=== PATIENT | female | born 1950 | race Caucasian/White ===

== ENCOUNTER 2016-12-15 12:50 | Outpatient (CLI) | payer MEDICARE ==
--- NOTE | 2016-12-15 14:14 | ULT ---
LEFT BREAST ULTRASOUND AND LEFT DIAGNOSTIC MAMMOGRAM: Date: 12/15/16 HISTORY: Focal asymmetry in the left breast COMPARISON: 06/02/16, 05/27/16, and 05/21/15. FINDINGS: ML, MLO, and CC views of the left breast, as well as spot compression views of the left breast in th e MLO and CC projections were performed. The focal asymmetry is again seen in the lower inner aspect of the left breast. This appears well circumscribed. Scattered fibroglandular breast tissue is pres ent. There are no suspicious calcifications or areas of architectural distortion. Interpretation of this mammogram was performed with the assistance of computer-aided detection. Targeted ultrasound of the left breast again shows a lobulated-appearing lesion at the 9:30 position approximately 6.0 cm from the nipple. This has a hyperechoic center and this could represent an int ramammary lymph node. No shadowing is seen posterior to this lesion. IMPRESSION: BIRADS 3: Probably Benign Finding - Short-Interval Follow-Up Suggested A 6 month follow-up mammogram and ultrasound are recommended to ensure continued stability. At that time, the patient should also have a mammogram of the opposite side as she will be due for an annual mammogram of the opposite side. The facility will notify the patient of the need for additional imaging services. POS: GEOVANNY
== END 2016-12-15 12:51 | disposition home or self-care (01) ==
LOC: MAMMO 12:50
PROVIDERS: ATTEND Family Medicine
DX: N63.20 Unspecified lump in the left breast, unspecified quadrant (principal)
CPT/HCPCS: 76642; G0206

== ENCOUNTER 2017-02-08 12:51 | Outpatient (CLI) | payer MEDICARE ==
--- NOTE | 2017-02-08 14:27 | ULT ---
VENOUS DOPPLER ULTRASOUND OF LEFT LOWER EXTREMITY: HISTORY: Edema of the left lower extremity. TECHNIQUE: Carpio scale ultrasound with color flow and spectral Doppler imaging of the deep venous system of the l eft lower extremity was performed. FINDINGS: There is good flow, compression, and augmentation noted in the left common femoral, femoral, deep fem oral, popliteal, posterior tibial, and greater saphenous veins. IMPRESSION: No evidence of deep vein thrombosis in the left lower extremity. POS: GEOVANNY
== END 2017-02-08 12:52 | disposition home or self-care (01) ==
LOC: ULT 12:51
PROVIDERS: ATTEND Family Medicine
DX: R60.0 Localized edema (principal)

== ENCOUNTER 2017-07-03 09:47 | Outpatient (CLI) | payer MEDICARE | END 2017-07-03 09:48 | disposition home or self-care (01) | LOC: BICMAMMO 09:47 | PROVIDERS: ATTEND Family Medicine | DX: N63.20 Unspecified lump in the left breast, unspecified quadrant (principal) | CPT/HCPCS: 76642; 77066; G0279 ==

== ENCOUNTER 2018-03-08 19:05 | Emergency (ER) | payer MEDICARE | END 2018-03-08 20:04 | disposition home or self-care (01) | LOC: ERS 19:05 | DX: I80.9 Phlebitis and thrombophlebitis of unspecified site (principal); L03.113 Cellulitis of right upper limb; I10 Essential (primary) hypertension; F41.9 Anxiety disorder, unspecified | CPT/HCPCS: 99283 ==

== ENCOUNTER 2018-09-28 08:47 | Outpatient (CLI) | payer MEDICARE ==
--- NOTE | 2018-09-28 10:10 | MMO ---
Bilateral MAMMO Bilat Screen [facility]DI+K[facility]I. CLINICAL HISTORY: Patient is 68 years old and is seen for screening. The patient has no family history of breast cancer. The patient has no personal history of cancer. VIEWS: The views performed were: bilateral craniocaudal with tomosynthesis and bilateral mediolateral oblique with tomosynthesis. FILMS COMPARED: The present examination has been compared to prior imaging studies performed at [facility] on 07/03/2017, and at [facility] on 05/27/2016 and 12/15/2016. MAMMOGRAM FINDINGS: There are scattered fibroglandular densities. There are benign appearing calcifications seen in both breasts. There are no suspicious masses, suspicious calcifications, or new areas of architectural distortion. IMPRESSION: THERE IS NO MAMMOGRAPHIC EVIDENCE OF MALIGNANCY. A ROUTINE FOLLOW-UP MAMMOGRAM IN 1 YEAR IS RECOMMENDED. THE RESULTS OF THIS EXAM WERE SENT TO THE PATIENT. ACR BI-RADS Category 2 - Benign finding MAMMOGRAPHY NOTE: 1. A negative mammogram report should not delay a biopsy if a dominant of clinically suspicious mass is present. 2. Approximately 10% to 15% of breast cancers are not detected by mammography. 3. Adenosis and dense breasts may obscure an underlying neoplasm. Reported by: RUFINA HELLER MD Electonically Signed: [id number]
== END 2018-09-28 08:48 | disposition home or self-care (01) ==
LOC: BICMAMMO 08:47
PROVIDERS: ATTEND Family Medicine
DX: Z12.31 Encounter for screening mammogram for malignant neoplasm of breast (principal)
CPT/HCPCS: 77063; 77067

== ENCOUNTER 2018-11-26 14:22 | Outpatient (CLI) | payer MEDICARE ==
[~2018-11-26 14:22] MED LIST: Gadobenate Dimeglumine 529 MG/1 ML (20ML VIAL) ONE
--- NOTE | 2018-11-26 15:49 | MRI ---
EXAM: MRI of the brain without and with contrast HISTORY: Gait instability COMPARISON: None TECHNIQUE: Multiplanar multisequence MR images were obtained of the brain without and with IV contras t. FINDINGS: There is a well-circumscribed homogeneously enhancing mass along the left anterior falx measuring 2.1 cm in greatest dimension. No restricted diffusion. No hydronephrosis. No extra-axial fluid collection or intracranial hemorrhage. The expected flow voids are present. Corpus callosum, pituitary, and craniocervical junction are within normal limits. The calvarium and overlying soft tissues are unremarkable. Mucosal thickening is seen in the maxillary sinuses. The other paranasal sinuses and mastoid air cell s are well aerated. IMPRESSION: Left parafalcine meningioma
== END 2018-11-26 14:23 | disposition home or self-care (01) ==
LOC: BICMRI 14:22
PROVIDERS: ATTEND Family Medicine
DX: R26.81 Unsteadiness on feet (principal); D32.0 Benign neoplasm of cerebral meninges
CPT/HCPCS: 70553; A9577

== ENCOUNTER 2019-01-01 08:22 | Outpatient (CLI) | payer MEDICARE ==
--- NOTE | 2019-01-01 09:45 | CT ---
CT Abdomen Pelvis W WO con History: Urinary tract infection. Hematuria. Comparison: None. Findings: On the noncontrast portion of the exam there is mild atelectasis in the lung bases. No scott cardial effusion. Numerous calcified splenic granulomas. Nonobstructive 3 x 3 mm calculus right inferior renal collecting system. No hydroureteronephrosis. Numerous bilateral renal parapelvic cysts. On the delayed phase of contrast there are no filling defe cts within the renal calyces, ureters, pelvis, nor the urinary bladder although urinary bladder evaluation is somewhat limited due to scatter artifact from bilateral hip arthroplasties. There is abnormal enlargement of the endometrium measuring 2 cm with concern for endometrial mass. Adrenal glands unremarkable. Pancreas is unremarkable. Incidental note is made of a phrygian cap of t he gallbladder. The portal vein is patent. Aortic contour is nonaneurysmal. No retroperitoneal adenopathy. No pelvic adenopathy is appreciated. No dilated loops of large or small bowel. Throughout all phases of the exam there is abnormal luminal narrowing, circumferential, of the ascending colon for length of 1 cm. Bones are moderately demineralized. Chronic appearing Schmorl's nodes of L3 and L4 as well as inferio r endplate of L2. High-grade facet arthrosis bilaterally as well as narrowing of the interspinous spaces. Moderate bilateral posterior paraspinal atrophy as well as atrophy of the bilateral gluteus sandrine a nd minimus muscles. Impression: 1. Nonobstructive 3 x 3 mm calculus inferior right renal collecting system. 2. No abnormal renal enhancing mass. 3. Large bilateral renal parapelvic cysts. 4. No filling defects within the renal calyces, pelvis, ureters, nor the urinary bladder. 5. Abnormally thickened endometrium measuring 2 cm concerning for mass. Gynecologic consultation advi sed as well as a pelvic ultrasound transvaginal approach with Doppler. 6. Throughout all phases the exam is a 1 cm circumferential narrowing of the ascending colon for whic h colonoscopy is recommended.
== END 2019-01-01 08:23 | disposition home or self-care (01) ==
LOC: BICCT 08:22
PROVIDERS: ATTEND Urology
DX: N39.0 Urinary tract infection, site not specified (principal); R31.29 Other microscopic hematuria; N28.1 Cyst of kidney, acquired; N20.0 Calculus of kidney
CPT/HCPCS: 74178; 82565

== ENCOUNTER 2019-03-27 07:50 | Outpatient (CLI) | payer MEDICARE ==
[2019-03-27 12:24] LABS: Hemoglobin 12.9 g/dL (12.0-16.0); Mean Corpuscular HGB CONC 33.2 g/dL (32.0-36.0); Mean Corpuscular Volume 87.4 fL (78.0-98.0); Mean Platelet Volume 6.9 fL (7.4-10.4); Platelet Count 215 thou/uL (130-400); RBC Distribution Width 11.8 % (11.5-14.5); Red Blood Cell (RBC) Count 4.47 mill/uL (4.20-5.40)
--- NOTE | 2019-04-01 18:44 | EKG ---
Test Reason : Blood Pressure : / mmHG Vent. Rate : 068 BPM Atrial Rate : 068 BPM P-R Int : 144 ms QRS Dur : 086 ms QT Int : 458 ms P-R-T Axes : 059 -60 050 degrees QTc Int : 487 ms Poor data quality, interpretation may be adversely affected Normal sinus rhythm Low voltage QRS Left anterior fascicular block Poor anterior R wave progression Abnormal ECG When compared with ECG of 25-AUG-2015 06:47, Left anterior fascicular block is now Present Septal infarct is now Present Nonspecific T wave abnormality, worse in Inferior leads Confirmed by KODY BAILON, DR. Turner (4) on 04/01/2019 6:43:47 PM Referred By: SHAN Confirmed By:DR. Yue GATES MD
== END 2019-03-27 07:51 | disposition home or self-care (01) ==
LOC: LABBT 07:50
PROVIDERS: ATTEND Obstetrics & Gynecology
DX: Z01.818 Encounter for other preprocedural examination (principal); N84.0 Polyp of corpus uteri
CPT/HCPCS: 85027; 86850; 86900; 86901; 93005; 93010

== ENCOUNTER → 2019-03-28 | Day surgery (SDC) | payer MEDICARE ==
[2019-03-27 10:51] VITALS: BMI 29.2
[~2019-03-28] MED LIST changes: +Fentanyl 100 MCG/2 ML VIAL ONE; -Gadobenate Dimeglumine 529 MG/1 ML (20ML VIAL) ONE; +Glycopyrrolate 0.2 MG/ML 5 ML SYRINGE ONE; +Lidocaine 1% PF 5 ML VIAL ONE; +Midazolam HCl 2 mg/2 ml Vial ONE; +Ondansetron PF 4 MG/2 ML Vial ONE; +PROPOFOL 200 MG/20 ML VIAL ONE; +Rocuronium Bromide 10 MG/ML (10ML VIAL) ONE
--- NOTE | 2019-03-28 07:24 | HP ---
REASON FOR ADMISSION: Thickened endometrium, suspected endometrial polyp. HISTORY OF PRESENT ILLNESS: Ms. Rabago is a 68-year-old 0, who is referred to me in January for endometrial mass that was noted on a CT scan of the pelvis. Ultrasound in my office revealed a thickened endometrium to approximately 20 mm with a vascular mass. Endometrial biopsy was performed, which revealed polyp with fragments that were benign. However, because of the size of the mass and its vascularity, malignancy cannot be ruled out with further sampling. DIRECTOR OF ENTERTAINMENT HISTORY: Noted. G0. No history of STDs. MEDICAL HISTORY: Significant for hypertension, stress incontinence, bipolar disease. SURGICAL HISTORY: Bilateral hip replacement, colonoscopy. ALLERGIES: PREVNAR. MEDICATIONS: 1. Estrace vaginal cream. 2. Lexapro. 3. Macrobid. 4. Propanolol. 5. Solifenacin. 6. Vitamin D3. SOCIAL: Denies tobacco, alcohol, or IV drug use. FAMILY HISTORY: Noncontributory. REVIEW OF SYSTEMS: Noncontributory. PHYSICAL EXAMINATION: GENERAL: A white female 5 foot 2 inches, 156, BMI 28. VITAL SIGNS: Blood pressure 138/88, pulse 64, respirations 18. HEENT: Within normal limits. LUNGS: Clear to auscultation bilaterally. HEART: Regular rhythm. BREASTS: Without masses bilaterally. ABDOMEN: Soft, nontender. No rebound or guarding. GENITOURINARY: Vulva without lesions. Vagina without discharge. Cervix, nulliparous, small with atrophic mucosa. Prior EMB, sounded to 6 cm with adequate tissue obtained. IMAGING: Pap smear was within normal limits. Biopsy was interpreted as inactive endometrium of a benign endometrial polyp. IMPRESSION: Postmenopausal white female with large endometrial vascular mass with EMB suggestive of polyp; however a complete sampling to rule out malignancy or premalignancy has not been performed. PLAN: D and C, hysteroscopy with TruClear resection of polyp. The patient understands risks and benefits of procedure including bleeding, infection, perforation, and failure to completely remove the polyp. We will administer appropriate antibiotic and DVT prophylaxis. Job ID: [id number]
--- NOTE | 2019-03-28 14:14 | OP ---
DATE OF PROCEDURE: 03/28/2019 PREOPERATIVE DIAGNOSIS: Thickened endometrium with endometrial biopsy in the office consistent with uterine polyps. POSTOPERATIVE DIAGNOSIS: Multiple endocavitary polyps, benign in appearance. PROCEDURE PERFORMED: Hysteroscopic resection of uterine polyps. ANESTHESIA: General endotracheal. ANESTHESIOLOGIST: Fransico Christopher MD ESTIMATED BLOOD LOSS: Less than 10 mL. MEDICATIONS: 2 g Ancef pre-incision. DVT PROPHYLAXIS: SCDs. OPERATIVE FINDINGS: 1. Pre and post sound 8 cm. 2. Atrophic cavity with multiple polyps, benign in appearance. 3. Significant removal of polyps with small amount of polyp bases remaining at the end of the procedure. 4. Approximately 3 L fluid use, normal saline, distention medium with 200 mL deficit with no evidence of perforation. DISPOSITION: Recovery room in good condition. DESCRIPTION OF PROCEDURE: After obtaining appropriate informed consent, the patient was taken to the operating room, where general endotracheal anesthesia was achieved without difficulty, prepped and draped in dorsal lithotomy position in Akshat stirrups. Bladder was drained of clear urine. Weighted speculum was placed in vagina. Cervix was identified and grasped with single-toothed tenaculum. It was very atrophic in nature. It sounded to 8 cm. It was severely dilated up to appropriate level for the 5 mm hysteroscope. 5 mm hysteroscope TruClear was introduced into the uterine cavity. Findings as noted in the operative findings were noted. Because of large number and size of the polyps, decision was made to proceed with a larger hysteroscope. With TruClear, the cervix was dilated up further, and the hysteroscope was reintroduced. Ideally, we would have used the soft tissue TruClear Plus resection tool; however, one was not in stock at the hospital. Instead, we used the TruClear Plus dense tissue resection device, which was deployed, and the tissue was resected in the usual manner. Majority of fluid loss and use during the case was due to leakage around the scope at the level of the cervix. No evidence of perforation was noted, and the resection device was kept in view throughout the case. Once essentially complete removal of the intracavity polyps was achieved and these were trapped for pathologic analysis, the hysteroscope was removed. Post sound was 8 cm. Tenaculum was removed. No bleeding noted. The patient was awakened, extubated, and taken to recovery room in good condition. We will follow up pathology and the patient in our office in 2 weeks. Job ID: [id number]
== END ==
LOC: SDC 10:01
PROVIDERS: ATTEND Obstetrics & Gynecology
PROC: 0UB98ZX Excision of Uterus, Via Natural or Artificial Opening Endoscopic, Diagnostic (ICD-10-PCS; principal; 2019-03-28)
DX: N84.0 Polyp of corpus uteri (principal); I10 Essential (primary) hypertension; F31.9 Bipolar disorder, unspecified; Z79.82 Long term (current) use of aspirin; Z79.899 Other long term (current) drug therapy; Z88.7 Allergy status to serum and vaccine
CPT/HCPCS: 86850; 86900; 86901; 88305; J0690; J2001; J2250; J2405; J2704; J3010

== ENCOUNTER 2019-05-20 11:54 | Emergency (ER) | payer MEDICARE ==
--- NOTE | 2019-05-20 12:56 | RAD ---
XR Shoulder Rt 3 View STANDARD HISTORY: Fall, right shoulder pain FINDINGS: Degenerative changes are present. No acute fracture or dislocation is identified.
== END 2019-05-20 13:17 | disposition home or self-care (01) ==
LOC: ERS 11:54
DX: M25.511 Pain in right shoulder (principal); I10 Essential (primary) hypertension; F41.9 Anxiety disorder, unspecified; W19.XXXA Unspecified fall, initial encounter

== ENCOUNTER 2019-09-03 09:12 | Day surgery (SDC) | payer MEDICARE, OTHER ==
[2019-08-29 13:33] VITALS: BMI 26.2
--- NOTE | 2019-08-30 13:08 | HP ---
ANTICIPATED DATE OF ADMISSION: 09/03/2019. REASON FOR ADMISSION: Postmenopausal bleeding and polypoid endometrium worrisome for malignancy. HISTORY OF PRESENT ILLNESS: Ms. Rabago is a 69-year-old, 0, who was first seen by me in January of 2019, for an endometrial mass noted on CT scan of the pelvis with a thickened endometrium to 20 mm and a vascular polypoid-appearing mass. Endometrial biopsy at that time revealed polyp fragments that were benign, but because of the vascularity and the size of the mass, malignancy cannot be ruled out. The patient underwent a D and C back in March of 2019, which revealed benign endocervical polyps. However, in the postoperative period, she has had a recurrence of her thickening of an endometrium with a very polypoid, almost grape-like appearance. Because of this recurrence and persistence, decision is made to proceed with definitive surgical management. BOAT FUELER HISTORY: As noted. No history of STDs or dysplasia. PAST MEDICAL HISTORY: Significant for hypertension, mild stress incontinence, and bipolar disease. PAST SURGICAL HISTORY: Bilateral hip replacement, colonoscopy, D and C. ALLERGIES: PREVNAR. MEDICATIONS: 1. Lexapro. 2. Macrobid. 3. Propranolol. 4. Solifenacin. 5. Vitamin D3. 6. Aygestin 5 mg p.o. daily. SOCIAL HISTORY: Denies tobacco, alcohol, or IV drug abuse. FAMILY HISTORY: Noncontributory. REVIEW OF SYSTEMS: Noncontributory. PHYSICAL EXAMINATION: GENERAL: White female. VITAL SIGNS: 5 feet 2 inches, BMI 28, blood pressure 136/82, pulse 85, respirations 18, temperature 98.6. HEENT: Within normal limits. LUNGS: Clear to auscultation bilaterally. HEART: Regular rhythm. BREASTS: No masses bilaterally. ABDOMEN: Soft and nontender. No rebound or guarding. PELVIC: Vulva without lesions. Vagina without discharge. Cervix; nulliparous, small, very atrophic vagina. EXTREMITIES: Without clubbing, cyanosis, or edema. Bimanual exam reveals no enlargement. IMPRESSION: Postmenopausal white female, no previous vaginal deliveries, with a polypoid endometrial vascular mass recurrence post dilation and curettage. Even though previous specimens were negative, it is somewhat worrisome in appearance for malignancy. PLAN: Discussed with the patient options. We will proceed with total laparoscopic hysterectomy and bilateral salpingo-oophorectomy. We will proceed with GelPOINT retrieval not because of the size of the mass, but because of the significant atrophy of her vagina as well as the risk of malignant spread if malignancy is found. Anticipate 23-hour observational status versus 1 day inpatient per the patient. The patient will receive appropriate antibiotic and DVT prophylaxis. COVID testing will be performed today. Job ID: [id number]
[2019-08-30 14:11] LABS: Hemoglobin 11.8 g/dL (12.0-16.0); Mean Corpuscular HGB CONC 33.1 g/dL (32.0-36.0); Mean Corpuscular Volume 87.5 fL (78.0-98.0); Mean Platelet Volume 6.9 fL (7.4-10.4); Platelet Count 213 thou/uL (130-400); RBC Distribution Width 12.8 % (11.5-14.5); Red Blood Cell (RBC) Count 4.09 mill/uL (4.20-5.40); White Blood Cell (WBC) Count 4.4 thou/uL (4.8-10.8)
[2019-08-31 13:11] LABS: SARS-CoV-2 MS2 Positive; SARS-CoV-2 N Gene Negative; SARS-CoV-2 S Gene Negative; SARS-CoV-2 orf1ab Negative
[2019-09-03] MEDS ORDERED: Famotidine/PF 20 mg/2ml Vial ONE (09:59)
[2019-09-03] MEDS ORDERED: Gabapentin 300 MG CAP ONE (09:59)
[2019-09-03] MEDS ORDERED: CeleCOXIB 100 MG CAP ONE (09:59)
[2019-09-03] MEDS ORDERED: Bupivacaine PF 0.5% 30 ML VIAL ONE (10:24)
[2019-09-03] MEDS ORDERED: Lidocaine 1% w/Epinephrine 1:100K 20 ML VIAL ONE (10:24)
[2019-09-03] MEDS ORDERED: Fentanyl 100 MCG/2 ML VIAL ONE ×2 (10:29→12:55)
[2019-09-03] MEDS ORDERED: Morphine 2 MG/ML SYRINGE SLOW IVP PRN (12:30)
[2019-09-03] MEDS ORDERED: Ondansetron PF 4 MG/2 ML Vial IVP PRN (12:30)
[2019-09-03] MEDS ORDERED: HYDROcodone/Acetaminophen 5/325 mg Tablet PO PRN ×2 (12:30)
[2019-09-03] MEDS ORDERED: Morphine 4 MG/ML VIAL SLOW IVP PRN (12:30)
[2019-09-03] MEDS ORDERED: diphenhydrAMINE 25 MG CAP PO PRN (12:30)
[2019-09-03] MEDS ORDERED: Promethazine HCl 25 MG/ML VIAL IM PRN (12:30)
[2019-09-03] MEDS ORDERED: Simethicone Chewable 80 MG TAB PO PRN (12:30)
--- NOTE | 2019-09-03 13:47 | OP ---
DATE OF PROCEDURE: 09/03/2019 PREOPERATIVE DIAGNOSIS: Persistent postmenopausal bleeding with vascular cavitary mass. POSTOPERATIVE DIAGNOSIS: Persistent postmenopausal bleeding with vascular cavitary mass. PROCEDURES PERFORMED: Total laparoscopic hysterectomy, bilateral salpingo-oophorectomy. MANAGER LVN: Katheryn Haynes PA-C ANESTHESIA: General endotracheal. ESTIMATED BLOOD LOSS: 75 mL. MEDICATIONS: 2 g Ancef preincision, DVT prophylaxis, SCDs. OPERATIVE FINDINGS: 1. Small normal-appearing uterus. 2. Normal-appearing tubes and ovaries bilaterally. 3. Hemostasis, clear urine. COUNTS: Correct at the end of the procedure. DISPOSITION: Recovery room in good condition. DESCRIPTION OF PROCEDURE: After obtaining proper informed consent, the patient was taken to the operating room, where general endotracheal anesthesia was achieved without difficulty. The patient was prepped and draped in dorsal lithotomy position in Akshat stirrups. Weighted speculum was placed in vagina. Cervix was identified, grasped with single-tooth tenaculum. Very atrophic vagina and cervix were noted. Cervix was hard to sound. With sounding and dilatation, evidence of perforation was noted. The TAWNYA manipulator with a 6.0 obturator and 3 cm vaginal intelligence director was placed without difficulty. Sandoval catheter was placed. Distillery Worker General changed his gloves and turned attention to abdominal portion of procedure. 10 mL of Marcaine injected above the umbilicus in the midline and a 12 mm skin incision was made. Veress needle was placed inside the abdominal cavity. Insufflation was carried out. Confirmation entry to the peritoneal cavity and trocar placement at max pressure of 15. Deborah cannula was placed. Right and left lateral da Radha ports were placed lateral to the epigastric vessels and the business banking sales assistant port was placed in the right upper quadrant. The patient was placed in Trendelenburg and findings as noted in the operative findings were noted. Because of the concern about possible malignancy based on the sonographic appearance, decision was made to place a GelPOINT to enable bag retrieval secondary to the concerns about malignancy as well as the patient's atrophic vagina. The fascial incision at the umbilicus was extended to approximately 2.5 cm and the GelPOINT was placed without difficulty. Retrieval bag was placed inside the abdominal cavity. Inspection revealed that the uterine manipulator had perforated anterior left lateral and because of this location, decision was made to pull it back and replace it under laparoscopic visualization. The patient's legs were rotated slightly. The TAWNYA was removed. Sound used to find the correct true path into the uterine cavity and the TAWNYA replaced without difficulty, inflated and a 3 cm vaginal obturator replaced. Da Radha robot was docked. Monopolar scissors in the right and bipolar fenestrated forceps in the left. Infundibulopelvic ligament on the patient's left was coagulated, transected, taken through the broad and the round down the level internal cervical os. The patient's bladder was noted to be quite patulous and was dissected off the lower uterine segment, cervix, and upper vagina. Backfilling the bladder several times to identify its margins. Identical procedure was carried out on the patient's right. Uterine vessels were skeletonized bilaterally, coagulated, and transected. Once this was done, the vagina was entered anteriorly at 12 o'clock, extended from 12 to 3, 12 to 9, and then from 3 to 6 and, 9 to 6 amputating the specimen. The balloon was down and the TAWNYA and was retrieved into the abdomen. Suction irrigation was carried out. Good hemostasis was achieved along the margin of the vagina. The bladder was again backfilled to identified its margins and it was closed using a running continuous 2-0 Stratafix PDS suture from right to left and back to the right, again backfilling along the way to ensure that the bladder was well out of the vaginal cuff closure. Good hemostasis was noted. Tisseel was placed across the surgical pedicles. Retrieval bag was brought down into the pelvis from the upper abdomen. Stay sutures on the retrieval bag cut, the bag opened, and the uterus and ovary were placed inside the retrieval bag. That was then brought out through the GelPOINT. The da Radha was undocked. After instruments were removed, the abdomen desufflated of carbon dioxide. The specimen was retrieved intact through the GelPOINT at the umbilicus. GelPOINT removed and the fascia at that level was reapproximated using running continuous 0 PDS suture. Good fascial integrity was noted. The skin was reapproximated at all 4 trocars sites using 4-0 Monocryl and Dermabond in subcuticular manner. Vagina was sponge checked and noted to be hemostatic and dry, and the patient was awakened and extubated to recovery room in good condition. Job ID: [id number]
[2019-09-03] MEDS ORDERED: Rocuronium Bromide 10 MG/ML (10ML VIAL) ONE (14:22)
[2019-09-03] MEDS ORDERED: Metoclopramide HCl 10 MG/2 ML VIAL ONE (14:22)
[2019-09-03] MEDS ORDERED: Ondansetron PF 4 MG/2 ML Vial ONE (14:22)
[2019-09-03] MEDS ORDERED: PROPOFOL 200 MG/20 ML VIAL ONE (14:22)
[2019-09-03] MEDS ORDERED: Lidocaine 1% PF 5 ML VIAL ONE (14:22)
[2019-09-03] MEDS ORDERED: Dexamethasone 20 MG/5 ML VIAL ONE (14:22)
[2019-09-03] MEDS ORDERED: Glycopyrrolate 0.2 MG/ML 5 ML SYRINGE ONE (14:22)
[2019-09-03] MEDS: Sodium Chloride 0.9% 1,000 ML IV SCH (15:25)
[2019-09-03] MEDS ORDERED: Sodium Chloride 0.9% 10 ML ONE (15:32)
[2019-09-03] MEDS: Ketorolac Tromethamine 30 MG/ML VIAL IVP SCH (17:51)
[2019-09-03] MEDS ORDERED: Docusate 100 MG CAP PO SCH (21:00)
[2019-09-04] MEDS: Sodium Chloride 0.9% 1,000 ML IV SCH ×2 (00:14→06:46)
[2019-09-04] MEDS: Ketorolac Tromethamine 30 MG/ML VIAL IVP SCH (02:39)
[2019-09-04] MEDS ORDERED: Ibuprofen 800 MG TAB PO SCH (06:00)
[2019-09-04 08:42] VITALS: BP 115/75; TEMP 98.1
[2019-09-04] MEDS ORDERED: Oxybutynin ER 5 MG TAB PO SCH (09:00)
[2019-09-04] MEDS ORDERED: Escitalopram Oxalate 10 mg Tablet PO SCH (09:00)
[2019-09-04 09:53] LABS: Hemoglobin 10.8 g/dL (12.0-16.0); Mean Corpuscular Hemoglobin 29.4 pg (27.0-31.0); Mean Corpuscular Volume 89.2 fL (78.0-98.0); Mean Platelet Volume 6.7 fL (7.4-10.4); Platelet Count 144 thou/uL (130-400); RBC Distribution Width 12.8 % (11.5-14.5); Red Blood Cell (RBC) Count 3.65 mill/uL (4.20-5.40); White Blood Cell (WBC) Count 7.6 thou/uL (4.8-10.8)
--- NOTE | 2019-09-04 12:35 | DIS ---
DATE OF ADMISSION: 09/03/2019 DATE OF DISCHARGE: 09/04/2019 SUMMARY OF HOSPITAL COURSE: The patient was admitted and underwent a TLH on 09/02. She had minimal blood loss. Postop day #1, hematocrit was 35.8% with white count of 4.4, normal platelets. PHYSICAL EXAMINATION: VITAL SIGNS: Temperature 97.3, T-max 98.2, pulse 77, respirations 16, and blood pressure 143/85. HEENT: Within normal limits. LUNGS: Clear to auscultation bilaterally. HEART: Regular rhythm. ABDOMEN: Soft and nontender. Bowel sounds in all 4 quadrants. Incision is intact and dry. Perineum is dry. EXTREMITIES: No clubbing, cyanosis, or edema. Of note, the patient had a urine output of 1100 mL postoperatively and voided 130 mL within 1 hour of vaginal pack and Sandoval catheter removal on the morning of 09/03. IMPRESSION: Doing well, status post total laparoscopic hysterectomy for postmenopausal bleeding, pathology pending. PLAN: Discharge home. [place] and ibuprofen sent out preoperatively. The patient has scheduled followup with [facility]. Will follow up pathology. Job ID: [id number]
--- NOTE | 2019-09-04 18:10 | EKG ---
Test Reason : PREOP Blood Pressure : / mmHG Vent. Rate : 055 BPM Atrial Rate : 055 BPM P-R Int : 128 ms QRS Dur : 098 ms QT Int : 460 ms P-R-T Axes : 084 -13 001 degrees QTc Int : 440 ms Sinus bradycardia with sinus arrhythmia Nonspecific ST and T wave abnormality Abnormal ECG When compared with ECG of 27-MAR-2019 11:19, QRS axis Shifted right Criteria for Septal infarct are no longer Present Nonspecific T wave abnormality, worse in Lateral leads Confirmed by ESTELA KIRBY (2) on 09/04/2019 6:10:33 PM Referred By: FRANCE Confirmed By:ESTELA KIRBY
== END 2019-09-04 10:50 | disposition home or self-care (01) ==
LOC: SDC 09:12 → 3SW 14:41 → SDC 09-04 10:50
PROVIDERS: ATTEND Obstetrics & Gynecology
PROC: 0UT94ZZ Resection of Uterus, Percutaneous Endoscopic Approach (ICD-10-PCS; principal; 2019-09-03)
PROC: 0UT24ZZ Resection of Bilateral Ovaries, Percutaneous Endoscopic Approach (ICD-10-PCS; 2019-09-03)
PROC: 0UT74ZZ Resection of Bilateral Fallopian Tubes, Percutaneous Endoscopic Approach (ICD-10-PCS; 2019-09-03)
DX: D25.9 Leiomyoma of uterus, unspecified (principal); N83.311 Acquired atrophy of right ovary; N83.312 Acquired atrophy of left ovary; I10 Essential (primary) hypertension; F31.9 Bipolar disorder, unspecified; Z79.899 Other long term (current) drug therapy; Z88.7 Allergy status to serum and vaccine
CPT/HCPCS: 58571; 85027 ×2; 86850; 86900; 86901; 88307; 93005; U0003; 36416; 87635; 93010; J0690; J1100; J1885; J2001; J2405; J2704; J2765; J3010; S0020; S0028

== ENCOUNTER 2019-10-01 09:37 | Outpatient (CLI) | payer MEDICARE ==
--- NOTE | 2019-10-01 10:59 | MMO ---
Bilateral MAMMO Bilat Screen DDI+KAMARI. CLINICAL HISTORY: Patient is 69 years old and is seen for screening. The patient has no family history of breast cancer. The patient has no personal history of cancer. VIEWS: The views performed were: bilateral craniocaudal with tomosynthesis and bilateral mediolateral oblique with tomosynthesis. FILMS COMPARED: The present examination has been compared to prior imaging studies performed at [facility] on 07/03/2017 and 09/28/2018, and at [facility] on 05/27/2016 and 12/15/2016. This study has been interpreted with the assistance of computer-aided detection. MAMMOGRAM FINDINGS: There are scattered fibroglandular densities. Benign calcifications are noted bilaterally. There are no suspicious masses, suspicious calcifications, or new areas of architectural distortion. IMPRESSION: THERE IS NO MAMMOGRAPHIC EVIDENCE OF MALIGNANCY. A ROUTINE FOLLOW-UP MAMMOGRAM IN 1 YEAR IS RECOMMENDED. THE RESULTS OF THIS EXAM WERE SENT TO THE PATIENT. ACR BI-RADS Category 2 - Benign finding MAMMOGRAPHY NOTE: 1. A negative mammogram report should not delay a biopsy if a dominant of clinically suspicious mass is present. 2. Approximately 10% to 15% of breast cancers are not detected by mammography. 3. Adenosis and dense breasts may obscure an underlying neoplasm. Reported by: DRISS TRUONG MD Electonically Signed: [id number]
== END 2019-10-01 09:38 | disposition home or self-care (01) ==
LOC: BICMAMMO 09:37
PROVIDERS: ATTEND Family Medicine
DX: Z12.31 Encounter for screening mammogram for malignant neoplasm of breast (principal)
CPT/HCPCS: 77063; 77067

== ENCOUNTER 2020-02-05 09:28 | Outpatient (CLI) | payer MEDICARE ==
--- NOTE | 2020-02-05 11:20 | MRI ---
MRI BRAIN WITH AND WITHOUT CONTRAST: INDICATION: Benign brain tumor. Followup. COMPARISON: Comparison is made to MRI of brain 11/26/2018. FINDINGS: FINDINGS: Mild cortical volume loss is stable. Mild chronic ischemic white matter changes appear stable. No e vidence of restricted diffusion. Post contrast images again show an enhancing mass along the flax superiorly to the left of midline un changed in size and appearance from the prior study. This continues to measure 2.1 cm AP dimension i n the axial plane. Maximal craniocaudal in the sagittal plane is 2.3 cm and is stable. No other abnormal enhancement. Mucous retention cyst in the left maxillary sinus measuring approximately 1.7 cm is stable. The cere bral arteries and dural venous sinuses demonstrate flow voids. IMPRESSION: 1. Falcine meningioma on the left superiorly is stable. 2. Mucous retention cyst in the left maxillary sinus is unchanged. 3. Mild chronic ischemic changes are unchanged in appearance. POS: AGW
[2020-02-05] MEDS ORDERED: Magnevist 469MG/ML 20 ML VIAL ONE (14:38)
== END 2020-02-05 09:29 | disposition home or self-care (01) ==
LOC: TBSIIMAG 09:28
PROVIDERS: ATTEND Neurological Surgery
DX: D32.0 Benign neoplasm of cerebral meninges (principal); J34.1 Cyst and mucocele of nose and nasal sinus; G93.89 Other specified disorders of brain
CPT/HCPCS: 70553; A9579

== ENCOUNTER 2020-04-02 09:16 | Emergency (ER) | payer MEDICARE ==
[2020-04-02] MEDS ORDERED: Bupivacaine 0.5% 10 ML VIAL ONE ×3 (09:29→09:34)
[2020-04-02] MEDS ORDERED: Lorazepam 2 MG/ML VIAL ONE (09:32)
[2020-04-02] MEDS ORDERED: Lorazepam 1 MG TAB ONE (09:35)
--- NOTE | 2020-04-02 10:53 | CT ---
CT BRAIN WITHOUT CONTRAST: HISTORY: Trauma, headache. FINDINGS: No evidence of acute infarct, hemorrhage, midline shift or abnormal extra-axial fluid collections is seen. The ventricular size is appropriate and the basilar cisterns are patent. The bony calvarium is intact. There is a mucous retention cyst versus polyp in the left maxillary sinus. There is mucosa l disease in the right maxillary sinus. There is soft tissue swelling in the right periorbital region. There are postoperative changes in the region of the right mastoid. Left anterior superior parafalcine meningioma is better visualized on the MRI of 02/05/2020 IMPRESSION: No CT evidence of acute intracranial process.
== END 2020-04-02 11:49 | disposition home or self-care (01) ==
LOC: ERS 09:16
DX: S01.111A Laceration without foreign body of right eyelid and periocular area, initial encounter (principal); I10 Essential (primary) hypertension; K21.9 Gastro-esophageal reflux disease without esophagitis; Z79.82 Long term (current) use of aspirin; Z79.899 Other long term (current) drug therapy; W01.0XXA Fall on same level from slipping, tripping and stumbling without subsequent striking against object, initial encounter
CPT/HCPCS: 12013; 70450; J2060; J3490

== ENCOUNTER 2021-10-04 09:58 | Outpatient (CLI) | payer MEDICARE | END 2021-10-04 09:59 | disposition home or self-care (01) | LOC: BICMAMMO 09:58 | PROVIDERS: ATTEND Family Medicine | DX: Z12.31 Encounter for screening mammogram for malignant neoplasm of breast (principal) | CPT/HCPCS: 77063; 77067 ==

== ENCOUNTER 2022-04-26 12:34 | Outpatient (CLI) | payer MEDICARE ==
[~2022-04-26 12:34] MED LIST changes: -Fentanyl 100 MCG/2 ML VIAL ONE; -Glycopyrrolate 0.2 MG/ML 5 ML SYRINGE ONE; -Lidocaine 1% PF 5 ML VIAL ONE; +Magnevist 469MG/ML 20 ML VIAL ONE; -Midazolam HCl 2 mg/2 ml Vial ONE; -Ondansetron PF 4 MG/2 ML Vial ONE; -PROPOFOL 200 MG/20 ML VIAL ONE; -Rocuronium Bromide 10 MG/ML (10ML VIAL) ONE
== END 2022-04-26 12:35 | disposition home or self-care (01) ==
LOC: TBSIIMAG 12:34
PROVIDERS: ATTEND Neurological Surgery
DX: D33.2 Benign neoplasm of brain, unspecified (principal); I67.82 Cerebral ischemia
CPT/HCPCS: 70553

== ENCOUNTER 2022-06-14 08:26 | Outpatient (CLI) | payer MEDICARE | END 2022-06-14 08:27 | disposition home or self-care (01) | LOC: NM 08:26 | PROVIDERS: ATTEND Psychiatry & Neurology Neurology | DX: G20 Parkinson's disease (principal) | CPT/HCPCS: 78803; A9584 ×2 ==

== ENCOUNTER 2022-06-30 08:53 | Outpatient (CLI) | payer MEDICARE ==
[2022-06-30 10:10] LABS: #Eosinphils 0.1 thou/uL (0.0-0.7); #Monocytes 0.3 thou/uL (0.11-0.59); #Neutrophils 2.5 thou/uL (1.40-6.50); %Eosinophils 2.4 % (0.0-10.0); %Lymphocytes 24.3 % (21.0-51.0); %Monocytes 8.8 % (0.0-10.0); %Neutrophils 63.5 % (42.0-75.0); Mean Corpuscular HGB CONC 33.4 g/dL (32.0-36.0); Mean Corpuscular Hemoglobin 30.7 pg (27.0-31.0); Mean Corpuscular Volume 91.9 fl (78.0-98.0); Platelet Count 188 10x3/uL (130-400); RBC Distribution Width 11.9 % (11.5-14.5); Red Blood Cell (RBC) Count 3.26 mill/uL (4.20-5.40); White Blood Cell (WBC) Count 3.9 10x3/uL (4.8-10.8)
[2022-06-30 10:29] LABS: ALT (SGPT) Less than 7 U/L (8-55); AST (SGOT) 15 U/L (5-34); Albumin 3.5 g/dL (3.4-4.8); Alkaline Phosphatase 80 U/L (40-110); Anion Gap 13 mmol/L (10-20); BUN (Urea Nitrogen) 23 mg/dL (9.8-20.1); Bilirubin, Total 0.3 mg/dL (0.2-1.2); Calc. Creatinine Clearance 0 mL/min (70-130); Calcium 9.2 mg/dL (7.8-10.44); Carbon Dioxide 24 mmol/L (23-31); Chloride 103 mmol/L (98-107); Estimated GFR 80; Globulin 2.6 g/dL (2.4-3.5); Glucose 82 mg/dL (83-110); Potassium 4.3 mmol/L (3.5-5.1); Protein, Total 6.1 g/dL (5.8-8.1); Sodium 136 mmol/L (136-145)
== END 2022-06-30 08:54 | disposition home or self-care (01) ==
LOC: CT 08:53
PROVIDERS: ATTEND Internal Medicine Gastroenterology
DX: Z01.818 Encounter for other preprocedural examination (principal); R13.10 Dysphagia, unspecified; D64.9 Anemia, unspecified; K31.89 Other diseases of stomach and duodenum
CPT/HCPCS: 36415; 71260; 74160; 80053; 82565; 85025

== ENCOUNTER 2022-10-24 14:25 | Outpatient (CLI) | payer MEDICARE | END 2022-10-24 14:26 | disposition home or self-care (01) | LOC: BICMAMMO 14:25 | PROVIDERS: ATTEND Family Medicine | DX: Z12.31 Encounter for screening mammogram for malignant neoplasm of breast (principal) | CPT/HCPCS: 77063; 77067 ==

== ENCOUNTER 2023-08-29 15:20 | Outpatient (CLI) | payer MEDICARE | END 2023-08-29 15:21 | disposition home or self-care (01) | LOC: BICRAD 15:20 | PROVIDERS: ATTEND Internal Medicine Rheumatology | DX: M81.0 Age-related osteoporosis without current pathological fracture (principal) | CPT/HCPCS: 72070 ==

== ENCOUNTER 2023-10-26 13:51 | Outpatient (CLI) | payer MEDICARE | END 2023-10-26 13:52 | disposition home or self-care (01) | LOC: BICMAMMO 13:51 | PROVIDERS: ATTEND Family Medicine | DX: Z12.31 Encounter for screening mammogram for malignant neoplasm of breast (principal) | CPT/HCPCS: 77063; 77067 ==

== ENCOUNTER 2023-12-29 13:41 | Outpatient (CLI) | payer MEDICARE | END 2023-12-29 13:42 | disposition home or self-care (01) | LOC: MRI 13:41 | PROVIDERS: ATTEND Psychiatry & Neurology Neurology | DX: G93.89 Other specified disorders of brain (principal); D32.0 Benign neoplasm of cerebral meninges | CPT/HCPCS: 70553; 76376 ==

== ENCOUNTER 2024-12-22 14:09 | Emergency (ER) | payer MEDICARE ==
[2024-12-22 14:50] LABS: #Basophils 0.03 10x3/uL (0.0-0.2); #Eosinophils 0.06 10x3/uL (0.0-0.7); #Monocytes 0.36 10x3/uL (0.11-0.59); #Neutrophils 4.77 10x3/uL (1.40-6.50); %Basophils 0.5 % (0.0-1.0); %Eosinophils 1.0 % (0.0-10.0); %Lymphocytes 11.5 % (21.0-51.0); %Monocytes 6.1 % (0.0-10.0); %Neutrophils 80.6 % (42.0-75.0); Hematocrit 30.2 % (36.0-47.0); Hemoglobin 9.7 g/dL (12.0-16.0); Mean Corpuscular Hemoglobin 28.1 pg (27.0-31.0); Mean Corpuscular Volume 87.5 fL (78.0-98.0); Platelet Count 249 10x3/uL (130-400); Red Blood Cell (RBC) Count 3.45 mill/uL (4.20-5.40); White Blood Cell (WBC) Count 5.92 10x3/uL (4.8-10.8)
[2024-12-22 15:10] LABS: ALT (SGPT) Less than 7 U/L (Less than 34); AST (SGOT) 19 U/L (11-34); Albumin 3.2 g/dL (3.1-4.5); Alkaline Phosphatase 99 U/L (40-110); Anion Gap 15 mmol/L (10-20); BUN (Urea Nitrogen) 30 mg/dL (9.8-20.1); Bilirubin, Total 0.3 mg/dL (0.3-1.2); Calc. Creatinine Clearance 0 mL/min (70-130); Calcium 9.1 mg/dL (7.8-10.44); Carbon Dioxide 25 mmol/L (23-31); Chloride 105 mmol/L (98-107); Globulin 3.4 g/dL (2.4-3.5); Glucose 101 mg/dL (83-110); Magnesium 1.9 mg/dL (1.6-2.6); Potassium 3.7 mmol/L (3.5-5.1); Sodium 141 mmol/L (136-145)
== END 2024-12-22 18:11 | disposition home or self-care (01) ==
LOC: ERS 14:09
DX: R42 Dizziness and giddiness (principal); R29.700 NIHSS score 0; I10 Essential (primary) hypertension
CPT/HCPCS: 36416; 70450; 72125; 80053; 83735; 83880; 84443; 84484; 85025; 93005

== ENCOUNTER 2024-12-23 17:38 | Inpatient (IN) | payer MEDICARE ==
[2024-12-23] MEDS ORDERED: Boostrix 0.5 ML (Tdap) VIAL (>/=7 yrs of age) ONE (18:57)
[2024-12-23] MEDS ORDERED: Ketorolac Tromethamine 30 MG (1 mL) VIAL ONE (18:58)
[2024-12-23] MEDS ORDERED: Ondansetron PF 4 MG/2 ML Vial ONE (21:05)
[2024-12-23 21:25] LABS: #Basophils 0.03 10x3/uL (0.0-0.2); #Eosinophils 0.12 10x3/uL (0.0-0.7); #Monocytes 0.47 10x3/uL (0.11-0.59); #Neutrophils 5.30 10x3/uL (1.40-6.50); %Basophils 0.4 % (0.0-1.0); %Eosinophils 1.8 % (0.0-10.0); %Lymphocytes 12.9 % (21.0-51.0); %Monocytes 6.9 % (0.0-10.0); %Neutrophils 77.4 % (42.0-75.0); Hematocrit 33.1 % (36.0-47.0); Hemoglobin 10.5 g/dL (12.0-16.0); Mean Corpuscular Hemoglobin 27.9 pg (27.0-31.0); Mean Corpuscular Volume 87.8 fL (78.0-98.0); Platelet Count 274 10x3/uL (130-400); Red Blood Cell (RBC) Count 3.77 mill/uL (4.20-5.40); White Blood Cell (WBC) Count 6.84 10x3/uL (4.8-10.8)
[2024-12-23 21:51] LABS: ALT (SGPT) Less than 7 U/L (Less than 34); AST (SGOT) 26 U/L (11-34); Albumin 3.4 g/dL (3.1-4.5); Alkaline Phosphatase 91 U/L (40-110); Anion Gap 17 mmol/L (10-20); BUN (Urea Nitrogen) 26 mg/dL (9.8-20.1); Bilirubin, Total 0.3 mg/dL (0.3-1.2); Calc. Creatinine Clearance 0 mL/min (70-130); Calcium 9.6 mg/dL (7.8-10.44); Carbon Dioxide 26 mmol/L (23-31); Chloride 105 mmol/L (98-107); Globulin 3.6 g/dL (2.4-3.5); Glucose 122 mg/dL (83-110); Lipase 7 U/L (8-78); Magnesium 1.8 mg/dL (1.6-2.6); Potassium 4.1 mmol/L (3.5-5.1); Sodium 144 mmol/L (136-145)
[2024-12-23 21:52] LABS: Acetaminophen Less than 10 mcg/mL (Less than 10); Salicylate Less than 8.0 mg/dL (Less than 8.0)
[2024-12-24] MEDS ORDERED: Ondansetron PF 4 MG/2 ML Vial ONE (00:55)
[2024-12-24] MEDS ORDERED: Dextrose 50% Abboject 50 ML SYRINGE SLOW IVP PRN (01:02)
[2024-12-24] MEDS ORDERED: Glucagon 1 MG/ML KIT IM PRN (01:02)
[2024-12-24 01:13] LABS: Bacteria/HPF 3+ HPF (None Seen); CAUTI Indications for Culture Alt mental st,lethar; Glucose, Urine (Dipstick) Normal (Negative); Leukocyte 75 Leu/uL (Negative); Protein, Urine (Dipstick) Negative (Neg-Trace); RBC/HPF 0-3 HPF (0-3); Specific Gravity, Urine 1.010 (1.002-1.036)
[2024-12-24 01:15] LABS: Urine Culture Reflex No No
[2024-12-24 01:19] LABS: Cocaine Metabolite Screen Negative (Negative); THC/Cannabinoid Screen Negative (Negative); Tricyclic Screen Negative (Negative)
[2024-12-24] MEDS: TETANUS, DIPHTHERIA TOX,ADULT (TDVAX) 0.5 ML VIAL IM ONE (03:08)
[2024-12-24 04:51] LABS: #Basophils 0.03 10x3/uL (0.0-0.2); #Eosinophils 0.17 10x3/uL (0.0-0.7); #Monocytes 0.47 10x3/uL (0.11-0.59); #Neutrophils 3.18 10x3/uL (1.40-6.50); %Basophils 0.6 % (0.0-1.0); %Eosinophils 3.5 % (0.0-10.0); %Lymphocytes 20.5 % (21.0-51.0); %Monocytes 9.6 % (0.0-10.0); %Neutrophils 65.2 % (42.0-75.0); Hematocrit 30.6 % (36.0-47.0); Hemoglobin 9.7 g/dL (12.0-16.0); Mean Corpuscular Hemoglobin 28.1 pg (27.0-31.0); Mean Corpuscular Volume 88.7 fL (78.0-98.0); Platelet Count 211 10x3/uL (130-400); Red Blood Cell (RBC) Count 3.45 mill/uL (4.20-5.40); White Blood Cell (WBC) Count 4.88 10x3/uL (4.8-10.8)
[2024-12-24 04:54] LABS: Anion Gap 13 mmol/L (10-20); BUN (Urea Nitrogen) 22 mg/dL (9.8-20.1); Calc. Creatinine Clearance 54 mL/min (70-130); Calcium 9.4 mg/dL (7.8-10.44); Carbon Dioxide 24 mmol/L (23-31); Chloride 111 mmol/L (98-107); Glucose 93 mg/dL (83-110); Potassium 3.9 mmol/L (3.5-5.1); Sodium 144 mmol/L (136-145)
[2024-12-24] MEDS ORDERED: Acetaminophen 325 MG TAB ONE (05:41)
[2024-12-24] MEDS ORDERED: Famotidine 20 MG TAB ONE (09:35)
[2024-12-24] MEDS ORDERED: hydrALAZINE 20 MG/ML VIAL ONE (09:35)
[2024-12-24] MEDS: hydrALAZINE 20 MG/ML VIAL SLOW IVP PRN (10:16)
[2024-12-24] MEDS: Famotidine 20 MG TAB PO SCH (10:16)
[2024-12-24 17:57] VITALS: BMI 24.7
[2024-12-24] MEDS: cefTRIAXone\\ROCEPHIN 1 GM in Sodium Chloride 0.9% 100 ML IVPB SCH (20:43)
[2024-12-25 06:29] LABS: #Basophils 0.04 10x3/uL (0.0-0.2); #Eosinophils 0.23 10x3/uL (0.0-0.7); #Monocytes 0.46 10x3/uL (0.11-0.59); #Neutrophils 3.24 10x3/uL (1.40-6.50); %Basophils 0.8 % (0.0-1.0); %Eosinophils 4.7 % (0.0-10.0); %Lymphocytes 18.8 % (21.0-51.0); %Monocytes 9.4 % (0.0-10.0); %Neutrophils 66.1 % (42.0-75.0); Hematocrit 28.9 % (36.0-47.0); Hemoglobin 8.9 g/dL (12.0-16.0); Mean Corpuscular Hemoglobin 27.9 pg (27.0-31.0); Mean Corpuscular Volume 90.6 fL (78.0-98.0); Platelet Count 229 10x3/uL (130-400); Red Blood Cell (RBC) Count 3.19 mill/uL (4.20-5.40); White Blood Cell (WBC) Count 4.90 10x3/uL (4.8-10.8)
[2024-12-25 07:09] LABS: Anion Gap 11 mmol/L (10-20); BUN (Urea Nitrogen) 18 mg/dL (9.8-20.1); Calc. Creatinine Clearance 52 mL/min (70-130); Calcium 8.3 mg/dL (7.8-10.44); Carbon Dioxide 25 mmol/L (23-31); Chloride 111 mmol/L (98-107); Glucose 96 mg/dL (83-110); Magnesium 1.4 mg/dL (1.6-2.6); Potassium 3.6 mmol/L (3.5-5.1); Sodium 143 mmol/L (136-145)
[2024-12-25] MEDS: Aspirin 81 mg Enteric Coated Tablet PO SCH (09:36)
[2024-12-25] MEDS: Enoxaparin 40 MG (0.4 mL) SYRINGE SC SCH (12:22)
[2024-12-25] MEDS: Acetaminophen 325 MG TAB PO PRN (15:54)
[2024-12-25] MEDS: Magnesium 2 GM/50 ML(in water) 2 GM in Premix 1 BAG IVPB SCH (15:55)
[2024-12-26] MEDS: FLU (Fluad Triv) 25-26 (65UP)PF 45 MCG/0.5 ML Syringe IM ONE (08:46)
[2024-12-26] MEDS: Calcium Carbonate 600 MG + Vit D TAB PO SCH (08:47)
[2024-12-26] MEDS: Methocarbamol 500 MG TAB PO SCH (08:47)
[2024-12-27 05:53] LABS: #Basophils Less than 0.03 10x3/uL (0.0-0.2); #Eosinophils 0.17 10x3/uL (0.0-0.7); #Monocytes 0.49 10x3/uL (0.11-0.59); #Neutrophils 3.20 10x3/uL (1.40-6.50); %Basophils 0.4 % (0.0-1.0); %Eosinophils 3.6 % (0.0-10.0); %Lymphocytes 18.1 % (21.0-51.0); %Monocytes 10.3 % (0.0-10.0); %Neutrophils 67.2 % (42.0-75.0); Hematocrit 29.7 % (36.0-47.0); Hemoglobin 9.4 g/dL (12.0-16.0); Mean Corpuscular Hemoglobin 28.0 pg (27.0-31.0); Mean Corpuscular Volume 88.4 fL (78.0-98.0); Platelet Count 238 10x3/uL (130-400); Red Blood Cell (RBC) Count 3.36 mill/uL (4.20-5.40); White Blood Cell (WBC) Count 4.76 10x3/uL (4.8-10.8)
[2024-12-27 06:49] LABS: Anion Gap 14 mmol/L (10-20); BUN (Urea Nitrogen) 9 mg/dL (9.8-20.1); Calc. Creatinine Clearance 76 mL/min (70-130); Calcium 8.5 mg/dL (7.8-10.44); Carbon Dioxide 23 mmol/L (23-31); Chloride 109 mmol/L (98-107); Glucose 86 mg/dL (83-110); Magnesium 1.6 mg/dL (1.6-2.6); Potassium 3.7 mmol/L (3.5-5.1); Sodium 142 mmol/L (136-145)
[2024-12-27] MEDS ORDERED: Electrolyte Replacement Protocol 1 EACH FS SCH (07:45)
[2024-12-27] MEDS: Magnesium 2 GM/50 ML(in water) 2 GM in Premix 1 BAG IVPB SCH (08:32)
[2024-12-27] MEDS: Ondansetron PF 4 MG/2 ML Vial IVP PRN (09:34)
[2024-12-27] MEDS: Famotidine 20 MG TAB PO SCH (09:45)
[2024-12-27 16:28] VITALS: BP 161/96; TEMP 97.8
[2024-12-27] MEDS ORDERED: Folic Acid 1 MG TAB PO SCH (21:00)
[2024-12-27] MEDS ORDERED: Cyanocobalamin (Vitamin B-12) 1,000 MCG TAB PO SCH (21:00)
[2024-12-27] MEDS ORDERED: Senokot S 8.6-50 MG TAB PO SCH ×2 (21:00)
== END 2024-12-27 17:00 | DRG 155 ==
LOC: ERS 17:38 → ERHOLD 12-24 01:02 → 2NO 12-24 17:09 → SURG A 12-26 18:08
PROVIDERS: ADMIT Surgery Trauma Surgery; ATTEND Surgery Trauma Surgery
DX: S02.2XXA Fracture of nasal bones, initial encounter for closed fracture (principal); S82.001A Unspecified fracture of right patella, initial encounter for closed fracture; G20.A1 Parkinson's disease without dyskinesia, without mention of fluctuations; I10 Essential (primary) hypertension; K21.9 Gastro-esophageal reflux disease without esophagitis; M81.0 Age-related osteoporosis without current pathological fracture; W19.XXXA Unspecified fall, initial encounter; Z88.7 Allergy status to serum and vaccine; Z79.82 Long term (current) use of aspirin; Z79.899 Other long term (current) drug therapy; H91.90 Unspecified hearing loss, unspecified ear; F32.A Depression, unspecified; Z98.890 Other specified postprocedural states; Z90.710 Acquired absence of both cervix and uterus; Z96.643 Presence of artificial hip joint, bilateral; M25.461 Effusion, right knee; Z23 Encounter for immunization
CPT/HCPCS: 36415; 36416; 70450; 70486; 71045; 72125; 80048; 80053; 80306; 80307; 81001; 83690; 83735; 83880; 84100; 84443; 84484; 85025; 90471; 90714; 90715; 93005; 93306; 96372; 96374; 96375; 96376; J0360; J0696; J1650; J1885; J2405; J3010; J3475; J7030